=== PATIENT | male | born 1985 | race Caucasian/White ===

== ENCOUNTER 2016-10-03 15:14 | Emergency (ER) | payer SELFPAY ==
[2016-10-03 15:32] VITALS: TEMP 97.7
--- NOTE | 2016-10-03 15:43 | ED.PDOC ---
History of Present Illness - General Chief Complaint: Drug or Alcohol Abuse Stated Complaint: heart flutters Time Seen by Provider: 10/03/16 15:28 Source: patient, RN notes reviewed, Vital Signs reviewed Exam Limitations: no limitations - History of Present Illness Initial Comments: Patient reports palpitations for the past 3 days. He has been trying to wean himself off alcohol and has gone from a gallon of alcohol a day to 2 pints in 3 days. + chest pain - heaviness that makes it hard to breathe. + nausea, + tremors. History of cardiomyopathy - reports it is/was resolved. Timing/Duration: constant, getting worse, other - 3 days Severity: moderate Improving Factors: nothing Worsening Factors: nothing Associated Symptoms: chest pain, diaphoresis, nausea/vomiting, shortness of breath Allergies/Adverse Reactions: Allergies Citalopram [From Celexa] Allergy (Verified 10/03/16 15:32) Home Medications: Ambulatory Orders chlordiazePOXIDE HCL [Librium] 25 mg PO TID #90 cap 10/03/16 Review of Systems - Review of Systems Constitutional: States: diaphoresis. Denies: chills, fever, malaise, weakness EENTM: States: no symptoms reported Respiratory: States: see HPI, short of breath. Denies: cough Cardiology: States: see HPI, chest pain. Denies: edema, palpitations, syncope Gastrointestinal/Abdominal: States: see HPI, nausea. Denies: abdominal pain, vomiting Musculoskeletal: States: no symptoms reported Skin: States: no symptoms reported Neurological: States: anxiety, depressed, tremors Endocrine: States: no symptoms reported Past Medical History (General) - Patient Medical History Surgical History: no surgical history - Vaccination History Hx Influenza Vaccination: No - Social History Hx Tobacco Use: Yes Family Medical History - Family History Mother Family History: Unknown Living Status: Unknown Physical Exam - Physical Exam General Appearance: Agitated, Alert, Anxious, Restless, Well Developed, Well Groomed, Well Hydrated, Well Nourished Eye Exam: bilateral normal Neck: non-tender, full range of motion, supple, normal inspection Respiratory: chest non-tender, lungs clear, normal breath sounds, no respiratory distress, no accessory muscle use Cardiovascular/Chest: no edema, no gallop, no JVD, no murmur, tachycardia Gastrointestinal/Abdominal: normal bowel sounds, non tender, soft, no organomegaly, no pulsatile mass Extremity: normal range of motion, non-tender, normal inspection Neurologic: alert, oriented x 3 Skin Exam: normal color, warm/dry Progress - Progress Progress: 10/03/16 16:52 Discussed lab results and symptoms with patient. Feel it would be best for him to be admitted to the hospital for help with his withdrawal symptoms. He is agreeable to admission. Spoke with Jennifer, Nurse Practitioner, who is going to speak with her supervising physician and call back. 10/03/16 17:[address] Wadsworth - he does not want to admit patient. He would like the patient to go home on Librium. Will d/c home on Librium 25mg TID with PCP follow up on Thursday. 10/03/16 17:32 Will give patient first dose of Librium here and see how he responds. He is very anxious about going home. Will re-evaluate in 1 hour. 10/03/16 18:46 Patient is feeling better. Less anxious and was able to sleep. Discussed his alcohol use, that he is weaning too quickly, needs to join AA or find a good support system. Return to ER if new or worsening symptoms. Take Librium as prescribed. - Results/Orders Results/Orders: Laboratory Tests 10/03/16 15:38 WBC 7.8 RBC 5.24 Hgb 16.5 Hct 48.9 MCV 93.3 MCH 31.5 H MCHC 33.8 RDW 14.0 Plt Count 236 MPV 7.7 Absolute Neuts (auto) 4.70 Absolute Lymphs (auto) 1.80 Absolute Monos (auto) 1.00 H Absolute Eos (auto) 0.20 Absolute Basos (auto) 0.10 Neutrophils % 60.0 Lymphocytes % 22.9 Monocytes % 12.7 H Eosinophils % 3.1 Basophils % 1.3 Sodium 140 Potassium 3.5 L Chloride 100 L Carbon Dioxide 32 H Anion Gap 11.5 L BUN 7 Creatinine 0.79 BUN/Creatinine Ratio 8.9 L Random Glucose 127 H Serum Osmolality 279.0 Calcium 8.6 Total Bilirubin 0.5 AST 80 H ALT 63 H Alkaline Phosphatase 58 Creatine Kinase 1262 H* Troponin I 0.00 L Serum Total Protein 7.7 Albumin 4.4 Globulin 3.3 Albumin/Globulin Ratio 1.3 UA shows trace blood but otherwise normal. - EKG/XRAY/CT EKG: Sinus, Tachy, RBBB, no ST T wave changes XRAY: chest - NAD Departure - Departure Clinical Impression: Alcohol withdrawal syndrome, Alcohol dependence Time of Disposition: 18:47 Disposition: Discharge to Home or Self Care Condition: Fair Departure Forms: ED Discharge - Pt. Copy, Patient Portal Self Enrollment Instructions: Alcohol Abuse and Alcoholism, DI for Delirium Tremens Diet: resume usual diet Referrals: Kimani Pereira MD [Primary Care Provider] - 1-2 Days Prescriptions: chlordiazePOXIDE HCL [Librium] 25 mg PO TID #90 cap Home Medications: Ambulatory Orders chlordiazePOXIDE HCL [Librium] 25 mg PO TID #90 cap 10/03/16 Decision To Admit - Decistion To Admit Decision to Admit Reason: Admit from ER Decision to Admit Date: 10/03/16 Decision to Admit Time: 17:06
[2016-10-03] MEDS ORDERED: THIAMINE HCL INJ 100 MG/ML VIAL ONE (15:48)
[2016-10-03] MEDS ORDERED: SODIUM CHLORIDE 0.9% 1000ML 1,000 ML ONE (15:48)
[2016-10-03] MEDS ORDERED: MULTIPLE VITAMIN 10 ML VIAL ONE (15:48)
[2016-10-03] MEDS ORDERED: MULTIPLE VITAMIN INJ 10 ML, THIAMINE HCL INJ 100 MG in SODIUM CHLORIDE 0.9% 1000ML 1,00... IV SCH (16:00)
[2016-10-03] MEDS ORDERED: chlordiazePOXIDE HCL 25 MG CAP PO ONE (17:20)
--- NOTE | 2016-10-03 18:37 | RAD ---
EXAM DESCRIPTION: Chest,1 View CLINICAL HISTORY: 30 years Male palpitations/chest pain COMPARISON: None. FINDINGS: The cardiomediastinal silhouette appears unremarkable.No consolidating infiltrates or pleural effusions.No pneumothorax. IMPRESSION: No acute abnormality is identified. Electronically signed by: Curtis Maldonado MD 10/03/2016 4:48 PM CURTAIN ROLLER ASSEMBLER
[2016-10-03 19:02] VITALS: BP 147/75; O2SAT 95
--- NOTE | 2016-10-03 20:44 | RAD ---
EXAM DESCRIPTION: Chest,1 View CLINICAL HISTORY: 30 years Male palpitations/chest pain COMPARISON: None. FINDINGS: The cardiomediastinal silhouette appears unremarkable.No consolidating infiltrates or pleural effusions.No pneumothorax. IMPRESSION: No acute abnormality is identified. Electronically signed by: Curtis Maldonado MD 10/03/2016 4:48 PM MEDICAL SCHEDULER
--- NOTE | 2016-10-19 23:59 | RAD ---
EXAM DESCRIPTION: Chest,1 View CLINICAL HISTORY: 30 years Male palpitations/chest pain COMPARISON: None. FINDINGS: The cardiomediastinal silhouette appears unremarkable.No consolidating infiltrates or pleural effusions.No pneumothorax. IMPRESSION: No acute abnormality is identified. Electronically signed by: Curtis Maldonado MD 10/03/2016 4:48 PM ACETYLENE TORCH OPERATOR
--- NOTE | 2016-10-19 23:59 | RAD ---
EXAM DESCRIPTION: Chest,1 View CLINICAL HISTORY: 30 years Male palpitations/chest pain COMPARISON: None. FINDINGS: The cardiomediastinal silhouette appears unremarkable.No consolidating infiltrates or pleural effusions.No pneumothorax. IMPRESSION: No acute abnormality is identified. Electronically signed by: Curtis Maldonado MD 10/03/2016 4:48 PM SHOP SERVICE TECHNICIAN
--- NOTE | 2016-10-19 23:59 | RAD ---
EXAM DESCRIPTION: Chest,1 View CLINICAL HISTORY: 30 years Male palpitations/chest pain COMPARISON: None. FINDINGS: The cardiomediastinal silhouette appears unremarkable.No consolidating infiltrates or pleural effusions.No pneumothorax. IMPRESSION: No acute abnormality is identified. Electronically signed by: Curtis Maldonado MD 10/03/2016 4:48 PM ELECTROMECHANICAL TECHNICIAN
--- NOTE | 2016-10-20 08:50 | RAD ---
EXAM DESCRIPTION: Chest,1 View CLINICAL HISTORY: 30 years Male palpitations/chest pain COMPARISON: None. FINDINGS: The cardiomediastinal silhouette appears unremarkable.No consolidating infiltrates or pleural effusions.No pneumothorax. IMPRESSION: No acute abnormality is identified. Electronically signed by: Curtis Maldonado MD 10/03/2016 4:48 PM SOCIAL SERVICES COORDINATOR
--- NOTE | 2016-10-20 08:55 | RAD ---
EXAM DESCRIPTION: Chest,1 View CLINICAL HISTORY: 30 years Male palpitations/chest pain COMPARISON: None. FINDINGS: The cardiomediastinal silhouette appears unremarkable.No consolidating infiltrates or pleural effusions.No pneumothorax. IMPRESSION: No acute abnormality is identified. Electronically signed by: Curtis Maldonado MD 10/03/2016 4:48 PM DENTAL PRACTICE MANAGER
--- NOTE | 2016-10-20 09:00 | RAD ---
EXAM DESCRIPTION: Chest,1 View CLINICAL HISTORY: 30 years Male palpitations/chest pain COMPARISON: None. FINDINGS: The cardiomediastinal silhouette appears unremarkable.No consolidating infiltrates or pleural effusions.No pneumothorax. IMPRESSION: No acute abnormality is identified. Electronically signed by: Curtis Maldonado MD 10/03/2016 4:48 PM DRAGGER
--- NOTE | 2016-10-23 10:47 | RAD ---
EXAM DESCRIPTION: Chest,1 View CLINICAL HISTORY: 30 years Male palpitations/chest pain COMPARISON: None. FINDINGS: The cardiomediastinal silhouette appears unremarkable.No consolidating infiltrates or pleural effusions.No pneumothorax. IMPRESSION: No acute abnormality is identified. Electronically signed by: Curtis Maldonado MD 10/03/2016 4:48 PM PRESS CLEANER
== END 2016-10-03 19:02 | disposition home or self-care (01) ==
LOC: ER 15:14
DX: F10.239 Alcohol dependence with withdrawal, unspecified (principal); Z88.8 Allergy status to other drugs, medicaments and biological substances; I45.10 Unspecified right bundle-branch block
CPT/HCPCS: 36415; 71010; 80053; 81001; 82550; 82553; 84484; 85025; 93005; J2060; J3411; J7030

== ENCOUNTER 2018-05-16 23:04 | Emergency (ER) | payer SELFPAY ==
[2018-05-16] MEDS ORDERED: MULTIPLE VITAMIN INJ 10 ML, THIAMINE HCL INJ 100 MG in SODIUM CHLORIDE 0.9% 1000ML 1,00... IVS ONE (23:32)
[2018-05-16] MEDS ORDERED: ALUM & MAG HYDROX-SIMETHICONE 30 ML, LIDOCAINE VISCOUS 2% 15 ML PO ONE ×2 (23:32)
[2018-05-16] MEDS ORDERED: LIDOCAINE HCL 2% (MOUTH-THROAT) 15 ML UD ONE (23:33)
[2018-05-16] MEDS ORDERED: ALUM & MAG HYDROX-SIMETHICONE 30 ML UD ONE (23:34)
[2018-05-16] MEDS ORDERED: SODIUM CHLORIDE 0.9% 1000ML 1,000 ML ONE (23:37)
[2018-05-16] MEDS ORDERED: THIAMINE HCL INJ 100 MG/ML VIAL ONE (23:37)
[2018-05-16] MEDS ORDERED: MULTIPLE VITAMIN 10 ML VIAL ONE (23:38)
--- NOTE | 2018-05-16 23:43 | RAD ---
Examination: XR CHEST 1 VIEW dated 05/16/2018 11:29 PM CDT History: chest pain, etoh use Comparison: 10/03/2016 Technique: 1 view chest Findings: The lungs are clear bilaterally. No pneumothorax or pleural effusion. The cardiomediastinal silhouette is within normal limits. Impression: No acute findings Electronically signed by: David Davis MD 05/16/2018 11:42 PM CDT
[2018-05-17 00:59] VITALS: O2SAT 95
[2018-05-17] MEDS ORDERED: SODIUM CHLORIDE 0.9% 1000ML 1,000 ML IVS ONE (01:03)
[2018-05-17] MEDS ORDERED: SUCRALFATE 1 GM/10 ML 1 GM UD PO ONE (01:21)
[2018-05-17] MEDS ORDERED: PANTOPRAZOLE SODIUM TAB 40 MG PO ONE (01:21)
--- NOTE | 2018-05-17 01:24 | ED.PDOC ---
History of Present Illness - General Chief Complaint: Chest Pain/[place] Stated Complaint: chest pain Time Seen by Provider: 05/16/18 23:10 Source: patient Exam Limitations: no limitations - History of Present Illness Initial Comments: the patient is a 32-year-old male presenting to emergency room secondary to epigastric and substernal pain present over the last 6-12 hours. The patient has essentially been binge drinking for the last 48 hours. He does have a history of significant alcohol intake. He apparently also has a history of significant withdrawals when he quits cold turkey. His last drink was one hour prior to arrival. The patient is alert and oriented and easily conversive. He is ambulatory without difficulty. He has however obviously been drinking. Timing/Duration: 4-6 hours Severity: mild Improving Factors: nothing Worsening Factors: nothing Associated Symptoms: chest pain, malaise, nausea/vomiting Allergies/Adverse Reactions: Allergies Citalopram [From Celexa] Allergy (Verified 10/03/16 15:32) Home Medications: Ambulatory Orders Aspirin [Kayla Low Dose] 81 mg PO 05/16/18 Famotidine [Pepcid Tab] 20 mg PO BID #60 tab 05/17/18 Review of Systems - Review of Systems Constitutional: States: malaise EENTM: States: no symptoms reported Respiratory: States: no symptoms reported Cardiology: States: chest pain Gastrointestinal/Abdominal: States: abdominal pain, nausea Genitourinary: States: no symptoms reported Musculoskeletal: States: no symptoms reported Skin: States: no symptoms reported Neurological: States: depressed Endocrine: States: no symptoms reported All other Systems: No Change from Baseline Past Medical History (General) - Patient Medical History Hx Cardiac Disorders: Yes - myopathy Hx Congestive Heart Failure: No Hx Diabetes: No - Vaccination History Hx Influenza Vaccination: No Immunizations Up to Date: No - Social History Hx Tobacco Use: Yes Hx Alcohol Use: Yes - Triage Comment ED Triage Comment: pain in chest past 4 hours. States has to take care of his mother. Admits excessive amount of alcohol consumed past two days Family Medical History - Family History Mother Family History: Unknown Living Status: Unknown Physical Exam - Physical Exam General Appearance: Alert, Comfortable, No apparent distress Eye Exam: bilateral normal Ears, Nose, Throat: hearing grossly normal, normal ENT inspection, normal pharynx Neck: full range of motion, supple, normal inspection Respiratory: lungs clear, normal breath sounds, no respiratory distress, no accessory muscle use Cardiovascular/Chest: normal peripheral pulses, regular rate, rhythm, no edema Peripheral Pulses: radial,right: 2+, radial,left: 2+, dorsalis pedis,right: 2+, dorsalis pedis,left: 2+ Gastrointestinal/Abdominal: soft, other - mild epigastric discomfort to palpation Rectal Exam: deferred Back Exam: normal inspection, no CVA tenderness, no vertebral tenderness Extremity: normal range of motion, non-tender, normal inspection, no pedal edema , normal capillary refill Neurologic: art consultant II-XII nml as tested, alert, normal mood/affect, oriented x 3 Skin Exam: normal color Comments: Vital Signs - 24 hr 05/16/18 05/16/18 05/16/18 23:13 23:19 23:30 Temperature 99.4 F Pulse Rate [ 114 H 114 H 106 H Apical] Respiratory 20 22 Rate Blood Pressure 145/108 128/86 [Left Arm] O2 Sat by Pulse 96 94 L Oximetry 05/16/18 05/17/18 05/17/18 23:41 00:19 00:57 Temperature Pulse Rate [ 105 H 100 H 104 H Apical] Respiratory 20 18 18 Rate Blood Pressure 140/83 129/73 150/81 [Left Arm] O2 Sat by Pulse 93 L 94 L 95 Oximetry 05/17/18 01:02 Temperature Pulse Rate [ 96 H Apical] Respiratory 20 Rate Blood Pressure 128/64 [Left Arm] O2 Sat by Pulse 95 Oximetry Progress - Progress Progress: 05/17/18 01:26 the patient is a 32-year-old male presenting to the emergency room with acute alcohol intoxication and associated chest pain that is most likely esophagitis from the drinking. laboratory work is been reassuring. EKG and chest x-ray are also reassuring. The patient will be placed on Pepcid 20 mg twice daily for the next couple of weeks. He needs to pepper picker and take a multivitamin B tablet daily given his drinking history. He needs to wean himself down off of the alcohol over the coming 4 or 5 days in order to prevent significant withdrawals and delirium tremens which he has apparently had in the past. He has received 2 L of IV fluids as well as a dose of thiamine here. Vital signs have remained stable. ER warnings were given. He needs to follow up with his primary care doctor later this week to hopefully develop a longer term plan for sobriety. - Results/Orders Results/Orders: EKG shows sinus tachycardia rate of 120 bpm. Normal axis. No acute ST segment or T-wave changes concerning for ischemia. Borderline QT interval. Mild right bundle branch block. Chest x-ray is grossly within normal limits. Laboratory Tests 05/16/18 05/16/18 05/16/18 23:29 23:29 23:29 WBC 7.1 RBC 5.17 Hgb 16.9 Hct 50.8 MCV 98.3 H MCH 32.7 H MCHC 33.2 RDW 15.1 H Plt Count 241 MPV 8.2 Absolute Neuts (auto) 2.90 Absolute Lymphs (auto) 2.70 Absolute Monos (auto) 1.10 H Absolute Eos (auto) 0.30 Absolute Basos (auto) 0.10 Neutrophils % 41.2 L Lymphocytes % 38.2 Monocytes % 15.3 H Eosinophils % 4.2 Basophils % 1.1 PT 9.7 INR 0.97 PTT (SP) 24.8 Sodium 140 Potassium 3.4 L Chloride 104 Carbon Dioxide 27 Anion Gap 12.4 BUN 8 Creatinine 0.90 BUN/Creatinine Ratio 8.9 L Random Glucose 129 H Serum Osmolality 279.4 Calcium 8.6 Total Bilirubin 0.3 AST 81 H ALT 60 Alkaline Phosphatase 44 Creatine Kinase 1571 H* CK-MB (CK-2) 4.0 CK-MB (CK-2) % 0.25 Troponin I < 0.02 Serum Total Protein 7.2 Albumin 4.0 Globulin 3.2 Albumin/Globulin Ratio 1.3 Ethyl Alcohol 05/16/18 23:29 WBC RBC Hgb Hct MCV MCH MCHC RDW Plt Count MPV Absolute Neuts (auto) Absolute Lymphs (auto) Absolute Monos (auto) Absolute Eos (auto) Absolute Basos (auto) Neutrophils % Lymphocytes % Monocytes % Eosinophils % Basophils % PT INR PTT (SP) Sodium Potassium Chloride Carbon Dioxide Anion Gap BUN Creatinine BUN/Creatinine Ratio Random Glucose Serum Osmolality Calcium Total Bilirubin AST ALT Alkaline Phosphatase Creatine Kinase CK-MB (CK-2) CK-MB (CK-2) % Troponin I Serum Total Protein Albumin Globulin Albumin/Globulin Ratio Ethyl Alcohol 388.80 H* Departure - Departure Clinical Impression: Esophagitis Acute alcohol intoxication Qualifiers: Complication of substance-induced condition: uncomplicated Qualified Code(s): F10.929 - Alcohol use, unspecified with intoxication, unspecified Disposition: Discharge to Home or Self Care Condition: Fair Departure Forms: ED Discharge - Pt. Copy, Patient Portal Self Enrollment Instructions: Acid Reflux (Gastroesophageal Reflux Disease), Adult (DC), Alcohol Abuse and Alcoholism (DC) Diet: bland diet Activity: increase activity as tolerated Referrals: Kimani Pereira MD [Primary Care Provider] - 1-5 Days Prescriptions: Famotidine [Pepcid Tab] 20 mg PO BID #60 tab Home Medications: Ambulatory Orders Aspirin [Kayla Low Dose] 81 mg PO 05/16/18 Famotidine [Pepcid Tab] 20 mg PO BID #60 tab 05/17/18 Additional Instructions: the patient is a 32-year-old male presenting to the emergency room with acute alcohol intoxication and associated chest pain that is most likely esophagitis from the drinking. laboratory work is been reassuring. EKG and chest x-ray are also reassuring. The patient will be placed on Pepcid 20 mg twice daily for the next couple of weeks. He needs to pepper picker and take a multivitamin B tablet daily given his drinking history. He needs to wean himself down off of the alcohol over the coming 4 or 5 days in order to prevent significant withdrawals and delirium tremens which he has apparently had in the past. He has received 2 L of IV fluids as well as a dose of thiamine here. Vital signs have remained stable. ER warnings were given. He needs to follow up with his primary care doctor later this week to hopefully develop a longer term plan for sobriety.
[2018-05-17 03:17] VITALS: TEMP 98
[2018-05-17 03:26] VITALS: BP 138/74
== END 2018-05-17 03:26 | disposition home or self-care (01) ==
LOC: ER 23:04
DX: K20.9 Esophagitis, unspecified (principal); F10.129 Alcohol abuse with intoxication, unspecified; R07.2 Precordial pain; R00.0 Tachycardia, unspecified; I45.10 Unspecified right bundle-branch block; Z79.82 Long term (current) use of aspirin; Z79.899 Other long term (current) drug therapy; Z88.8 Allergy status to other drugs, medicaments and biological substances; Z87.891 Personal history of nicotine dependence
CPT/HCPCS: 71045; 80053; 80320; 82550; 82553; 84484; 85025; 85610; 85730; 93005; J3411; J7030

== ENCOUNTER 2018-05-17 12:33 | Emergency (ER) | payer SELFPAY ==
[2018-05-17 13:06] VITALS: TEMP 98
--- NOTE | 2018-05-17 13:36 | ED.PDOC ---
History of Present Illness - General Chief Complaint: General Stated Complaint: feeling weak Time Seen by Provider: 05/17/18 13:30 Source: patient Exam Limitations: no limitations - History of Present Illness Initial Comments: Cabrera Bee 32 y/o male stated that he ran out of hi Clonazepam -2 mg QID today and Adderall for the last one month and has feeling more anxious ,weak and took alcoholic beverages yesterday to calm him down.Denies suicidal ideation or harm to others.Stated ran out of prescription and wants it refilled since he does not want to go back to Dr. Pereira his primary Md wants it refilled here.Explained to him that I dont do refills for those kind of medication and advised to go back to Dr. Pereira for a temporary refill until he will find new Md that could refill his prescription. Timing/Duration: 24 hours Severity: moderate Improving Factors: nothing Worsening Factors: nothing Associated Symptoms: other - see hpi Allergies/Adverse Reactions: Allergies Citalopram [From Celexa] Allergy (Verified 10/03/16 15:32) Home Medications: Ambulatory Orders Aspirin [Kayla Low Dose] 81 mg PO 05/16/18 Clonazepam 2 mg PO Q6HRS #2 tab 05/17/18 Famotidine [Pepcid Tab] 20 mg PO BID #60 tab 05/17/18 Review of Systems - Review of Systems Constitutional: States: no symptoms reported EENTM: States: no symptoms reported Respiratory: States: no symptoms reported Cardiology: States: no symptoms reported Gastrointestinal/Abdominal: States: no symptoms reported Genitourinary: States: no symptoms reported Musculoskeletal: States: no symptoms reported Skin: States: no symptoms reported Neurological: States: emotional problems Endocrine: States: no symptoms reported Hematologic/Lymphatic: States: no symptoms reported Past Medical History (General) - Patient Medical History Hx Seizures: Yes - Alcohol SZ Hx Cardiac Disorders: Yes - myopathy Hx Congestive Heart Failure: No Hx Diabetes: No Hx Cancer: No Hx Hepatitis C: No Surgical History: other - left lower extremity - Vaccination History Hx Tetanus, Diphtheria Vaccination: No Hx Influenza Vaccination: No Hx Pneumococcal Vaccination: No Immunizations Up to Date: No - Social History Hx Tobacco Use: Yes Hx Chewing Tobacco Use: No Hx Alcohol Use: Yes Hx Substance Use: Yes Hx Substance Use Treatment: No Hx Depression: Yes Feels Threatened In Home Enviroment: No Feels Threatened In a Relationship: No Hx Physical Abuse: No Hx Emotional Abuse: No Hx Suspected Abuse: No - Female History Patient is a Female of Child Bearing Age (10 -59 yrs old): No Patient : No Family Medical History - Family History Mother Family History: Unknown Living Status: Unknown Hx Family Diabetes: Yes Physical Exam - Physical Exam General Appearance: Alert, Anxious, No apparent distress Eye Exam: bilateral normal Ears, Nose, Throat: hearing grossly normal, normal ENT inspection, normal pharynx Neck: non-tender, full range of motion, supple, normal inspection Respiratory: chest non-tender, lungs clear, normal breath sounds Cardiovascular/Chest: normal peripheral pulses, regular rate, rhythm, no murmur Peripheral Pulses: radial,right: 2+, radial,left: 2+ Gastrointestinal/Abdominal: normal bowel sounds, non tender, soft, no organomegaly Back Exam: normal inspection, no CVA tenderness, no vertebral tenderness Extremity: non-tender, no pedal edema, no calf tenderness Neurologic: alert, oriented x 3 Skin Exam: normal color, warm/dry Lymphatic: no adenopathy Progress - Progress Progress: 05/17/18 13:52 Vital Signs - 8 hr 05/17/18 05/17/18 12:33 13:33 Temperature 98 F Pulse Rate [ 107 H 105 H Apical] Respiratory 18 18 Rate Blood Pressure 140/96 152/94 [Left Arm] O2 Sat by Pulse 98 96 Oximetry 05/17/18 15:56 05/17/18 14:00 Multiple Vitamin Inj [MVI Injectable] 10 ml Thiamine HCl Inj 100 mg Sodium Chloride 0.9% 1000ML [Ns 1000 ml] 1,000 ml IVS Q24H 05/17/18 15:18 TSH [THYROID STIMULATING HORMONE] Stat 05/17/18 15:29 Sodium Bicarbonate Vial [Sodium Bicarbonate] 75 meq Dextrose 5% 1000ML [D5W 1000ml] 1,000 ml IVS .QD Laboratory Results - last 24 hr 05/17/18 05/17/18 05/17/18 13:51 13:51 13:51 WBC 4.9 RBC 5.07 Hgb 16.8 Hct 49.7 MCV 97.9 H MCH 33.2 H MCHC 33.9 RDW 15.1 H Plt Count 209 MPV 7.9 Absolute Neuts (auto) 2.40 Absolute Lymphs (auto) 1.30 Absolute Monos (auto) 0.90 H Absolute Eos (auto) 0.20 Absolute Basos (auto) 0.10 Neutrophils % 49.8 Lymphocytes % 27.2 Monocytes % 18.0 H Eosinophils % 3.8 Basophils % 1.2 Sodium 141 Potassium 3.7 Chloride 105 Carbon Dioxide 28 Anion Gap 11.7 L BUN 8 Creatinine 0.85 BUN/Creatinine Ratio 9.4 L Random Glucose 95 Serum Osmolality 279.4 Calcium 8.0 L Total Bilirubin 0.7 AST 84 H ALT 67 H Alkaline Phosphatase 47 Creatine Kinase 996 H* D CK-MB (CK-2) 3.2 CK-MB (CK-2) % 0.32 Troponin I < 0.02 Serum Total Protein 7.2 Albumin 4.0 Globulin 3.2 Albumin/Globulin Ratio 1.3 Urine Color Urine Appearance Urine pH Ur Specific [place] Urine Protein Urine Glucose (UA) Urine Ketones Urine Blood Urine Nitrite Urine Bilirubin Urine Urobilinogen Ur Leukocyte Esterase Urine RBC Urine WBC Ur Epithelial Cells Urine Bacteria Urine Opiates Screen Urine Barbiturates Ur Phencyclidine Scrn U Amphetamin/Meth Scrn U Benzodiazepines Scrn U Cocaine Metab Screen U Cannabinoids Screen 05/17/18 05/17/18 14:02 14:02 WBC RBC Hgb Hct MCV MCH MCHC RDW Plt Count MPV Absolute Neuts (auto) Absolute Lymphs (auto) Absolute Monos (auto) Absolute Eos (auto) Absolute Basos (auto) Neutrophils % Lymphocytes % Monocytes % Eosinophils % Basophils % Sodium Potassium Chloride Carbon Dioxide Anion Gap BUN Creatinine BUN/Creatinine Ratio Random Glucose Serum Osmolality Calcium Total Bilirubin AST ALT Alkaline Phosphatase Creatine Kinase CK-MB (CK-2) CK-MB (CK-2) % Troponin I Serum Total Protein Albumin Globulin Albumin/Globulin Ratio Urine Color Yellow Urine Appearance Clear Urine pH 7.0 Ur Specific [place] 1.015 Urine Protein Negative Urine Glucose (UA) Negative Urine Ketones Negative Urine Blood Negative Urine Nitrite Negative Urine Bilirubin Negative Urine Urobilinogen 0.2 Ur Leukocyte Esterase Negative Urine RBC 0 Urine WBC 0 Ur Epithelial Cells 0 Urine Bacteria 0 Urine Opiates Screen Negative Urine Barbiturates Negative Ur Phencyclidine Scrn Negative U Amphetamin/Meth Scrn Negative U Benzodiazepines Scrn Negative U Cocaine Metab Screen Negative U Cannabinoids Screen Negative 05/17/18 15:56 Records shown that he was here 05/16 with chest pain ekg and troponin no acute myocardial injury and with etoh level of 338 given Banana bag one liter and discharge home and was also noted [id number] today 995 which is on down rodriguez trend. 05/17/18 17:39 CK level continue to trend down [id number] 05/17/18 18:24 Vital Signs - 8 hr 05/17/18 05/17/18 05/17/18 12:33 13:33 14:00 Temperature 98 F Pulse Rate [ 107 H 105 H 95 H Apical] Respiratory 18 18 14 Rate Blood Pressure 140/96 152/94 149/93 [Left Arm] O2 Sat by Pulse 98 96 96 Oximetry 05/17/18 05/17/18 05/17/18 15:00 16:00 16:56 Temperature Pulse Rate [ 83 80 Apical] Respiratory 18 18 Rate Blood Pressure 140/84 134/47 149/73 [Left Arm] O2 Sat by Pulse 96 98 96 Oximetry 05/17/18 05/17/18 17:38 17:57 Temperature Pulse Rate [ 100 H 99 H Apical] Respiratory 20 20 Rate Blood Pressure 94/63 110/65 [Left Arm] O2 Sat by Pulse 97 97 Oximetry 05/17/18 18:33 - Results/Orders Results/Orders: 05/17/18 14:00 Multiple Vitamin Inj [MVI Injectable] 10 ml Thiamine HCl Inj 100 mg Sodium Chloride 0.9% 1000ML [Ns 1000 ml] 1,000 ml IVS Q24H 05/17/18 15:29 Sodium Bicarbonate Vial [Sodium Bicarbonate] 75 meq Dextrose 5% 1000ML [D5W 1000ml] 1,000 ml IVS .QD Laboratory Results - last 24 hr 05/17/18 05/17/18 05/17/18 13:51 13:51 13:51 WBC 4.9 RBC 5.07 Hgb 16.8 Hct 49.7 MCV 97.9 H MCH 33.2 H MCHC 33.9 RDW 15.1 H Plt Count 209 MPV 7.9 Absolute Neuts (auto) 2.40 Absolute Lymphs (auto) 1.30 Absolute Monos (auto) 0.90 H Absolute Eos (auto) 0.20 Absolute Basos (auto) 0.10 Neutrophils % 49.8 Lymphocytes % 27.2 Monocytes % 18.0 H Eosinophils % 3.8 Basophils % 1.2 Sodium 141 Potassium 3.7 Chloride 105 Carbon Dioxide 28 Anion Gap 11.7 L BUN 8 Creatinine 0.85 BUN/Creatinine Ratio 9.4 L Random Glucose 95 Serum Osmolality 279.4 Calcium 8.0 L Total Bilirubin 0.7 AST 84 H ALT 67 H Alkaline Phosphatase 47 Creatine Kinase 996 H* D CK-MB (CK-2) 3.2 CK-MB (CK-2) % 0.32 Troponin I < 0.02 Serum Total Protein 7.2 Albumin 4.0 Globulin 3.2 Albumin/Globulin Ratio 1.3 TSH Urine Color Urine Appearance Urine pH Ur Specific [place] Urine Protein Urine Glucose (UA) Urine Ketones Urine Blood Urine Nitrite Urine Bilirubin Urine Urobilinogen Ur Leukocyte Esterase Urine RBC Urine WBC Ur Epithelial Cells Urine Bacteria Urine Opiates Screen Urine Barbiturates Ur Phencyclidine Scrn U Amphetamin/Meth Scrn U Benzodiazepines Scrn U Cocaine Metab Screen U Cannabinoids Screen 05/17/18 05/17/18 05/17/18 14:02 14:02 15:18 WBC RBC Hgb Hct MCV MCH MCHC RDW Plt Count MPV Absolute Neuts (auto) Absolute Lymphs (auto) Absolute Monos (auto) Absolute Eos (auto) Absolute Basos (auto) Neutrophils % Lymphocytes % Monocytes % Eosinophils % Basophils % Sodium Potassium Chloride Carbon Dioxide Anion Gap BUN Creatinine BUN/Creatinine Ratio Random Glucose Serum Osmolality Calcium Total Bilirubin AST ALT Alkaline Phosphatase Creatine Kinase CK-MB (CK-2) CK-MB (CK-2) % Troponin I Serum Total Protein Albumin Globulin Albumin/Globulin Ratio TSH 0.66 Urine Color Yellow Urine Appearance Clear Urine pH 7.0 Ur Specific [place] 1.015 Urine Protein Negative Urine Glucose (UA) Negative Urine Ketones Negative Urine Blood Negative Urine Nitrite Negative Urine Bilirubin Negative Urine Urobilinogen 0.2 Ur Leukocyte Esterase Negative Urine RBC 0 Urine WBC 0 Ur Epithelial Cells 0 Urine Bacteria 0 Urine Opiates Screen Negative Urine Barbiturates Negative Ur Phencyclidine Scrn Negative U Amphetamin/Meth Scrn Negative U Benzodiazepines Scrn Negative U Cocaine Metab Screen Negative U Cannabinoids Screen Negative 05/17/18 17:10 WBC RBC Hgb Hct MCV MCH MCHC RDW Plt Count MPV Absolute Neuts (auto) Absolute Lymphs (auto) Absolute Monos (auto) Absolute Eos (auto) Absolute Basos (auto) Neutrophils % Lymphocytes % Monocytes % Eosinophils % Basophils % Sodium Potassium Chloride Carbon Dioxide Anion Gap BUN Creatinine BUN/Creatinine Ratio Random Glucose Serum Osmolality Calcium Total Bilirubin AST ALT Alkaline Phosphatase Creatine Kinase 877 H* CK-MB (CK-2) CK-MB (CK-2) % Troponin I Serum Total Protein Albumin Globulin Albumin/Globulin Ratio TSH Urine Color Urine Appearance Urine pH Ur Specific [place] Urine Protein Urine Glucose (UA) Urine Ketones Urine Blood Urine Nitrite Urine Bilirubin Urine Urobilinogen Ur Leukocyte Esterase Urine RBC Urine WBC Ur Epithelial Cells Urine Bacteria Urine Opiates Screen Urine Barbiturates Ur Phencyclidine Scrn U Amphetamin/Meth Scrn U Benzodiazepines Scrn U Cocaine Metab Screen U Cannabinoids Screen - EKG/XRAY/CT CT Ordered: No CT Interpretation Call Back: No Departure - Departure Clinical Impression: Malaise and fatigue, FPC prescription benzodiazepine use Rhabdomyolysis Qualifiers: Rhabdomyolysis type: non-traumatic Qualified Code(s): M62.82 - Rhabdomyolysis Time of Disposition: 18:27 Disposition: Discharge to Home or Self Care Condition: Fair Departure Forms: ED Discharge - Pt. Copy, Patient Portal Self Enrollment Instructions: Rhabdomyolysis (DC), Rhabdomyolysis Diet: other - Need to Drink extra fluids preferably water ;avoid alcoholic beverages Referrals: Kimani Pereira MD [Primary Care Provider] - 1-2 Weeks Prescriptions: Clonazepam 2 mg PO Q6HRS #2 tab Home Medications: Ambulatory Orders Aspirin [Kayla Low Dose] 81 mg PO 05/16/18 Clonazepam 2 mg PO Q6HRS #2 tab 05/17/18 Famotidine [Pepcid Tab] 20 mg PO BID #60 tab 05/17/18 Additional Instructions: Follow up with your primary Md in AM 18 May 2018
[2018-05-17] MEDS ORDERED: cloNIDine HCL 0.1 MG TAB PO ONE (13:42)
[2018-05-17] MEDS ORDERED: SODIUM CHLORIDE 0.9% 1000ML 1,000 ML ONE (14:00)
[2018-05-17] MEDS ORDERED: MULTIPLE VITAMIN INJ 10 ML, THIAMINE HCL INJ 100 MG in SODIUM CHLORIDE 0.9% 1000ML 1,00... IVS SCH (14:00)
[2018-05-17] MEDS ORDERED: MULTIPLE VITAMIN 10 ML VIAL ONE (14:01)
[2018-05-17] MEDS ORDERED: THIAMINE HCL INJ 100 MG/ML VIAL ONE (14:01)
[2018-05-17] MEDS ORDERED: KETOROLAC TROMETHAMINE INJ 30 MG/ML VIAL IV ONE (15:16)
[2018-05-17] MEDS ORDERED: ORPHENADRINE CITRATE 30 MG/ML AMP IV ONE (15:16)
[2018-05-17] MEDS ORDERED: SODIUM BICARBONATE VIAL 75 MEQ in DEXTROSE 5% 1000ML 1,000 ML IVS PRN (15:29)
[2018-05-17] MEDS ORDERED: SODIUM BICARBONATE VIAL 50 MEQ/50 ML VIAL ONE ×2 (15:36→16:01)
[2018-05-17] MEDS ORDERED: DEXTROSE 5% 1000ML 1,000 ML IVS ONE (16:00)
[2018-05-17 17:40] VITALS: O2SAT 97
[2018-05-17 17:58] VITALS: BP 110/65
== END 2018-05-17 18:50 | disposition home or self-care (01) ==
LOC: ER 12:33
DX: M62.82 Rhabdomyolysis (principal); R53.81 Other malaise; R53.83 Other fatigue; F32.9 Major depressive disorder, single episode, unspecified; F19.11 Other psychoactive substance abuse, in remission; Z79.899 Other long term (current) drug therapy; Z87.891 Personal history of nicotine dependence; Z88.8 Allergy status to other drugs, medicaments and biological substances; Z79.82 Long term (current) use of aspirin
CPT/HCPCS: 36415; 80053; 80307; 81001; 82550; 82553; 84443; 84484; 85025; J1885; J2360; J3411; J7030; J7060

== ENCOUNTER 2018-06-27 18:32 | Emergency (ER) | payer SELFPAY ==
[2018-06-27 18:57] VITALS: TEMP 98.4
--- NOTE | 2018-06-27 19:10 | ED.PDOC ---
History of Present Illness - General Chief Complaint: GI Problem Stated Complaint: vomiting,unable to keep anything down Time Seen by Provider: 06/27/18 19:04 Source: patient Exam Limitations: no limitations - History of Present Illness Initial Comments: Patient presents with N/V/D for three days. He said that he has not eaten in three days. He has generalized aches and fatigue. He has mild abdominal pain associated with the vomiting. He does not have any known sick contacts. He says that he drinks a lot of alcohol and has had significant amounts in the last three days. No other complaints. Patient says he has a history of cardiomyopathy, tachycardia, and an extensive family history of "heart attacks" . Timing/Duration: other - 3 days Severity: moderate Improving Factors: nothing Worsening Factors: nothing Associated Symptoms: denies symptoms Allergies/Adverse Reactions: Allergies Citalopram [From Celexa] Allergy (Verified 10/03/16 15:32) Home Medications: Ambulatory Orders Aspirin [Kayla Low Dose] 81 mg PO 05/16/18 Clonazepam 2 mg PO Q6HRS #2 tab 05/17/18 Famotidine [Pepcid Tab] 20 mg PO BID #60 tab 05/17/18 Omeprazole Magnesium [Prilosec Otc] 20 mg PO QAM #30 tab 06/27/18 Ondansetron Tab [Zofran Tab] 4 mg PO Q6HRS #10 tab 06/27/18 Sucralfate Tab [Carafate Tab] 1 gm PO AC #100 tablet 06/27/18 Review of Systems - Review of Systems Constitutional: States: no symptoms reported EENTM: States: no symptoms reported Respiratory: States: no symptoms reported Cardiology: States: no symptoms reported Gastrointestinal/Abdominal: States: see HPI Genitourinary: States: no symptoms reported Musculoskeletal: States: no symptoms reported Skin: States: no symptoms reported Neurological: States: no symptoms reported Endocrine: States: no symptoms reported Hematologic/Lymphatic: States: no symptoms reported Past Medical History (General) - Patient Medical History Hx Seizures: Yes - Alcohol SZ Hx Stroke: No Hx Cardiac Disorders: Yes - myopathy Hx Congestive Heart Failure: No Hx Diabetes: No Hx Cancer: No Hx Hepatitis C: No - Vaccination History Hx Tetanus, Diphtheria Vaccination: No Hx Influenza Vaccination: No Hx Pneumococcal Vaccination: No - Social History Hx Tobacco Use: Yes Hx Chewing Tobacco Use: No Hx Alcohol Use: Yes Hx Substance Use: Yes Hx Substance Use Treatment: No Hx Depression: Yes Hx Physical Abuse: No Hx Emotional Abuse: No Hx Suspected Abuse: No - Female History Patient : No Family Medical History - Family History Mother Family History: Unknown Living Status: Unknown Hx Family Diabetes: Yes Physical Exam - Physical Exam General Appearance: Alert Eye Exam: bilateral normal Ears, Nose, Throat: normal ENT inspection Neck: non-tender, full range of motion, supple Respiratory: lungs clear, normal breath sounds Cardiovascular/Chest: normal peripheral pulses, regular rate, rhythm, no edema Gastrointestinal/Abdominal: normal bowel sounds, soft, tenderness - generalized and mild TTP over the abdomen Back Exam: normal inspection, no CVA tenderness Extremity: normal range of motion, non-tender, normal inspection Neurologic: clinical trainer II-XII nml as tested, no motor/sensory deficits, alert, normal mood/affect, oriented x 3 Skin Exam: normal color Lymphatic: no adenopathy Progress - Progress Progress: 06/27/18 22:37 Laboratory Tests 06/27/18 06/27/18 06/27/18 19:05 19:05 19:05 WBC 9.2 RBC 5.30 Hgb 17.5 Hct 51.6 MCV 97.4 H MCH 33.0 H MCHC 33.9 RDW 14.0 Plt Count 233 MPV 8.0 Absolute Neuts (auto) 5.90 Absolute Lymphs (auto) 2.10 Absolute Monos (auto) 1.00 H Absolute Eos (auto) 0.10 Absolute Basos (auto) 0.10 Neutrophils % 64.4 Lymphocytes % 23.2 Monocytes % 10.4 H Eosinophils % 0.6 L Basophils % 1.4 Sodium 141 Potassium 3.5 L Chloride 102 Carbon Dioxide 29 Anion Gap 13.5 BUN 13 Creatinine 0.99 BUN/Creatinine Ratio 13.1 Random Glucose 139 H Serum Osmolality 283.6 Calcium 8.6 Total Bilirubin 0.5 AST 39 ALT 41 Alkaline Phosphatase 49 Creatine Kinase CK-MB (CK-2) CK-MB (CK-2) % Troponin I Serum Total Protein 7.7 Albumin 4.1 Globulin 3.6 H Albumin/Globulin Ratio 1.1 Lipase 43 Urine Color Urine Appearance Urine pH Ur Specific [place] Urine Protein Urine Glucose (UA) Urine Ketones Urine Blood Urine Nitrite Urine Bilirubin Urine Urobilinogen Ur Leukocyte Esterase Urine RBC Urine WBC Ur Epithelial Cells Urine Bacteria Urine Opiates Screen Urine Barbiturates Ur Phencyclidine Scrn U Amphetamin/Meth Scrn U Benzodiazepines Scrn U Cocaine Metab Screen U Cannabinoids Screen Ethyl Alcohol 06/27/18 06/27/18 06/27/18 19:05 19:05 19:25 WBC RBC Hgb Hct MCV MCH MCHC RDW Plt Count MPV Absolute Neuts (auto) Absolute Lymphs (auto) Absolute Monos (auto) Absolute Eos (auto) Absolute Basos (auto) Neutrophils % Lymphocytes % Monocytes % Eosinophils % Basophils % Sodium Potassium Chloride Carbon Dioxide Anion Gap BUN Creatinine BUN/Creatinine Ratio Random Glucose Serum Osmolality Calcium Total Bilirubin AST ALT Alkaline Phosphatase Creatine Kinase 216 H* CK-MB (CK-2) 1.7 CK-MB (CK-2) % Not Reportable Troponin I < 0.02 Serum Total Protein Albumin Globulin Albumin/Globulin Ratio Lipase Urine Color Urine Appearance Urine pH Ur Specific [place] Urine Protein Urine Glucose (UA) Urine Ketones Urine Blood Urine Nitrite Urine Bilirubin Urine Urobilinogen Ur Leukocyte Esterase Urine RBC Urine WBC Ur Epithelial Cells Urine Bacteria Urine Opiates Screen Negative Urine Barbiturates Negative Ur Phencyclidine Scrn Negative U Amphetamin/Meth Scrn Negative U Benzodiazepines Scrn Negative U Cocaine Metab Screen Negative U Cannabinoids Screen Negative Ethyl Alcohol 345.40 H* 06/27/18 19:25 WBC RBC Hgb Hct MCV MCH MCHC RDW Plt Count MPV Absolute Neuts (auto) Absolute Lymphs (auto) Absolute Monos (auto) Absolute Eos (auto) Absolute Basos (auto) Neutrophils % Lymphocytes % Monocytes % Eosinophils % Basophils % Sodium Potassium Chloride Carbon Dioxide Anion Gap BUN Creatinine BUN/Creatinine Ratio Random Glucose Serum Osmolality Calcium Total Bilirubin AST ALT Alkaline Phosphatase Creatine Kinase CK-MB (CK-2) CK-MB (CK-2) % Troponin I Serum Total Protein Albumin Globulin Albumin/Globulin Ratio Lipase Urine Color Yellow Urine Appearance Clear Urine pH 7.5 Ur Specific [place] 1.010 Urine Protein Negative Urine Glucose (UA) Negative Urine Ketones Negative Urine Blood Negative Urine Nitrite Negative Urine Bilirubin Negative Urine Urobilinogen 0.2 Ur Leukocyte Esterase Negative Urine RBC 0 Urine WBC 0 Ur Epithelial Cells 0 Urine Bacteria 0 Urine Opiates Screen Urine Barbiturates Ur Phencyclidine Scrn U Amphetamin/Meth Scrn U Benzodiazepines Scrn U Cocaine Metab Screen U Cannabinoids Screen Ethyl Alcohol Patient's alcohol level was 345. We offered to try to get him into a detox facility but he refused. We advised him that he could not drive home with that alcohol level but he was welcome to call for a ride or to sleep here until his level was down to zero. He decided to leave AMA. Police were contacted to make sure he did not attempt to drive a vehicle from the hospital. He was given an RX for zofran, carafate, and prilosec for likely erosive gastritis due to chronic alcohol ingestion. Departure - Departure Clinical Impression: Erosive gastritis, Vomiting, Diarrhea, Alcohol abuse Disposition: Left Against Medical Advice Condition: Fair Departure Forms: ED Discharge - Pt. Copy, Patient Portal Self Enrollment Diet: other - stop drinking alcohol. Go to a rehab facility for detoxification when you decide to do that. Activity: increase activity as tolerated Prescriptions: Ondansetron Tab [Zofran Tab] 4 mg PO Q6HRS #10 tab Omeprazole Magnesium [Prilosec Otc] 20 mg PO QAM #30 tab Sucralfate Tab [Carafate Tab] 1 gm PO AC #100 tablet Home Medications: Ambulatory Orders Aspirin [Kayla Low Dose] 81 mg PO 05/16/18 Clonazepam 2 mg PO Q6HRS #2 tab 05/17/18 Famotidine [Pepcid Tab] 20 mg PO BID #60 tab 05/17/18 Omeprazole Magnesium [Prilosec Otc] 20 mg PO QAM #30 tab 06/27/18 Ondansetron Tab [Zofran Tab] 4 mg PO Q6HRS #10 tab 06/27/18 Sucralfate Tab [Carafate Tab] 1 gm PO AC #100 tablet 06/27/18
[2018-06-27] MEDS ORDERED: MULTIPLE VITAMIN 10 ML VIAL ONE (19:20)
[2018-06-27] MEDS ORDERED: THIAMINE HCL INJ 100 MG/ML VIAL ONE (19:20)
[2018-06-27] MEDS: ONDANSETRON INJ 4 MG/2 ML VIAL IV ONE (19:21)
[2018-06-27] MEDS ORDERED: SODIUM CHLORIDE 0.9% 1000ML 1,000 ML ONE (19:22)
[2018-06-27] MEDS ORDERED: FOLIC ACID INJ 5 MG/ML VIAL ONE (19:23)
[2018-06-27] MEDS: MULTIPLE VITAMIN INJ 10 ML, THIAMINE HCL INJ 100 MG, FOLIC ACID INJ 1 MG in SODIUM CHLO... IVS SCH (19:24)
[2018-06-27] MEDS: SODIUM CHLORIDE 0.9% 1000ML 1,000 ML IVS ONE (20:12)
[2018-06-27] MEDS: PANTOPRAZOLE SODIUM IV 40 MG VIAL IV ONE (21:18)
[2018-06-27 23:03] VITALS: O2SAT 97
[2018-06-27 23:05] VITALS: BP 121/65
== END 2018-06-27 22:25 | disposition left against medical advice (07) ==
LOC: ER 18:32
DX: K29.00 Acute gastritis without bleeding (principal); F10.129 Alcohol abuse with intoxication, unspecified; G72.9 Myopathy, unspecified; F32.9 Major depressive disorder, single episode, unspecified; Z53.29 Procedure and treatment not carried out because of patient's decision for other reasons; Z82.49 Family history of ischemic heart disease and other diseases of the circulatory system; Z87.891 Personal history of nicotine dependence
CPT/HCPCS: 36415; 80053; 80307; 80320; 81001; 82550; 82553; 83690; 84484; 85025; 93005; J2405; J3411; J7030

== ENCOUNTER 2018-09-28 12:55 | Emergency (ER) | payer SELFPAY ==
[2018-09-28 13:17] VITALS: TEMP 98.5
[2018-09-28] MEDS ORDERED: ONDANSETRON ODT 8 MG TAB ONE (14:26)
[2018-09-28] MEDS ORDERED: ONDANSETRON ODT 8 MG TAB SL ONE (14:30)
[2018-09-28] MEDS ORDERED: SODIUM CHLORIDE 0.9% 1000ML 1,000 ML IVS ONE (14:42)
--- NOTE | 2018-09-28 14:56 | RAD ---
EXAM DESCRIPTION: Chest,1 View CLINICAL HISTORY: 32 years Male, SOB COMPARISON: Previous study May 16, 2018 TECHNIQUE: AP portable chest. FINDINGS: Heart size is normal with normal pulmonary vascularity. No consolidating infiltrate. No pulmonary mass or worrisome nodule. No pneumothorax or pleural effusion. Bones are unremarkable. IMPRESSION: No acute process is identified in the chest. Electronically signed by: Nickolas Dang MD 09/28/2018 2:54 PM [employer]
--- NOTE | 2018-09-28 15:36 | ED.PDOC ---
History of Present Illness - General Chief Complaint: General Stated Complaint: n/v/d cramping in extremities Time Seen by Provider: 09/28/18 13:13 Source: patient Exam Limitations: no limitations - History of Present Illness Initial Comments: 2d CHILLS, SWEATS, N/V, MILD SOB, MYALGIAS. POS SICK [employer] WITH SIMILAR SX. Timing/Duration: constant Severity: moderate Improving Factors: nothing Worsening Factors: nothing Associated Symptoms: fever/chills, nausea/vomiting Allergies/Adverse Reactions: Allergies Citalopram [From Celexa] Allergy (Verified 09/28/18 13:16) Home Medications: Ambulatory Orders Aspirin [Kayla Low Dose] 81 mg PO 05/16/18 Clonazepam 2 mg PO Q6HRS #2 tab 05/17/18 Ondansetron [Zofran Odt] 8 mg PO Q8H PRN #15 tab 09/28/18 Review of Systems - Review of Systems Constitutional: States: chills, fever, malaise, weakness EENTM: States: no symptoms reported Respiratory: States: short of breath - MILD Cardiology: States: no symptoms reported Gastrointestinal/Abdominal: States: nausea, vomiting. Denies: abdominal pain Genitourinary: States: no symptoms reported Musculoskeletal: States: no symptoms reported Skin: States: no symptoms reported Neurological: States: no symptoms reported Endocrine: States: no symptoms reported Hematologic/Lymphatic: States: no symptoms reported All other Systems: Reviewed and Negative Past Medical History (General) - Patient Medical History Hx Seizures: Yes - Alcohol SZ Hx Stroke: No Hx Cardiac Disorders: Yes - myopathy Hx Congestive Heart Failure: No Hx Hypertension: Yes Hx Diabetes: No Hx Cancer: No Hx Hepatitis C: No Surgical History: no surgical history - Vaccination History Hx Tetanus, Diphtheria Vaccination: No Hx Influenza Vaccination: No Hx Pneumococcal Vaccination: No Immunizations Up to Date: No - Social History Hx Tobacco Use: Yes Hx Chewing Tobacco Use: No Hx Alcohol Use: Yes - occ Hx Substance Use: No Hx Substance Use Treatment: No Hx Depression: Yes Hx Physical Abuse: No Hx Emotional Abuse: No Hx Suspected Abuse: No - Female History Patient : No Family Medical History - Family History Mother Family History: Unknown Living Status: Unknown Hx Family Diabetes: Yes Physical Exam - Physical Exam General Appearance: Alert, Ill Appearing Eye Exam: bilateral normal Ears, Nose, Throat: hearing grossly normal, normal ENT inspection, normal pharynx Neck: non-tender, full range of motion, supple Respiratory: chest non-tender, lungs clear, normal breath sounds, no respiratory distress Cardiovascular/Chest: normal peripheral pulses, regular rate, rhythm, no murmur Peripheral Pulses: radial,right: 2+, radial,left: 2+ Gastrointestinal/Abdominal: normal bowel sounds, non tender, soft, no organomegaly, no pulsatile mass Back Exam: normal inspection, no CVA tenderness Extremity: normal range of motion, normal inspection, no pedal edema, no calf tenderness Neurologic: no motor/sensory deficits, alert, oriented x 3 Skin Exam: normal color, warm/dry Lymphatic: other - POS L CERVICAL ADENOPATHY. Progress - Progress Progress: 09/28/18 15:40 cbc, cxr, RAPID flu neg. cmp mild hypokalemia at 3.3. FLU-LIKE VIRAL IFXN. MOTRIN, ZORFAN PRN N/V. TINCTURE OF TIME. Departure - Departure Clinical Impression: Acute viral syndrome, Myalgia, Chills without fever, Hypokalemia Nausea & vomiting Qualifiers: Vomiting type: unspecified Vomiting Intractability: non-intractable Qualified Code(s): R11.2 - Nausea with vomiting, unspecified Dyspnea Qualifiers: Dyspnea type: shortness of breath Qualified Code(s): R06.02 - Shortness of breath; R06.00 - Dyspnea, unspecified; R06.01 - Orthopnea Disposition: Discharge to Home or Self Care Condition: Good Departure Forms: ED Discharge - Pt. Copy, Patient Portal Self Enrollment Instructions: Viral Syndrome (DC) Diet: bland diet Activity: increase activity as tolerated Prescriptions: Ondansetron [Zofran Odt] 8 mg PO Q8H PRN #15 tab PRN Reason: Nausea Home Medications: Ambulatory Orders Aspirin [Kayla Low Dose] 81 mg PO 05/16/18 Clonazepam 2 mg PO Q6HRS #2 tab 05/17/18 Ondansetron [Zofran Odt] 8 mg PO Q8H PRN #15 tab 09/28/18 Additional Instructions: Take ibuprofen 800 mg 3 times per day as needed for body aches or fevers. Get plenty of rest and fluids. Comments: Get plenty of rest and fluids.
[2018-09-28] MEDS ORDERED: IBUPROFEN 200 MG TAB PO ONE (15:48)
[2018-09-28 15:56] VITALS: BP 107/64; O2SAT 98
== END 2018-09-28 15:56 | disposition home or self-care (01) ==
LOC: ER 12:55
DX: B34.9 Viral infection, unspecified (principal); E87.6 Hypokalemia; R06.00 Dyspnea, unspecified; I10 Essential (primary) hypertension; F32.9 Major depressive disorder, single episode, unspecified; Z87.891 Personal history of nicotine dependence; Z79.82 Long term (current) use of aspirin; Z79.899 Other long term (current) drug therapy; Z88.8 Allergy status to other drugs, medicaments and biological substances
CPT/HCPCS: 71045; 80053; 81001; 85025; 87502; J7030